=== PATIENT | female | born 1950 | race Caucasian/White ===

== ENCOUNTER 2017-10-13 05:45 | Observation (INO) ==
[2017-09-23 12:56] LABS: Basophils % 0.4 % (0.0-0.8); Eosinophils # 0.1 10*3/uL (0.0-0.87); Hematocrit 30.5 VOL% (35.7-47.0); Hemoglobin 8.8 GM/DL (12.0-16.0); Immature Granulocytes % 0.7 %; Immature Granulocytes Absolute 0.05 #; Lymphocytes % 15.2 % (21.3-54.2); Mean Corpuscular HGB Conc 28.9 GM/DL (32-36); Mean Corpuscular Hemoglobin 23 PG (27-34); Mean Corpuscular Volume 78.2 FL (87-102); Mean Platelet Volume 9.7 FL (9.6-12.0); Monocytes # 0.7 10*3/uL (0.11-0.8); Monocytes % 9.7 % (1.7-12.7); Neutrophils # 4.9 10*3/uL (1.4-7.4); Platelet Count 359 T/CUMM (130-400); White Blood Count 6.7 T/CUMM (4-12)
[2017-09-23 13:24] LABS: Hypochromasia 1+
[2017-09-23 13:35] LABS: Albumin 2.9 G/DL (3.4-5.0); Bilirubin,Total 0.5 MG/DL (0.2-1.0); Calcium 9.9 MG/DL (8.5-10.1); Osmolality,Calculated 279.5 MOS/KG (273-304); Potassium 4.7 MMOL/L (3.5-5.1); Total Protein 6.8 G/DL (6.4-8.3)
[2017-09-23 13:38] LABS: PT Patient Result 10.3 SECS; Partial Thromboplastin Time 22.6 SECS (0-40)
[2017-10-13] MEDS ORDERED: cefTRIAXone 1,000 MG in SYRINGE 1 EACH IV ONE (06:00)
[2017-10-13] MEDS ORDERED: DIAZEPAM 5 MG TABLET PO ONE (06:00)
[2017-10-13] MEDS ORDERED: FAMOTIDINE 20 MG TABLET PO ONE (06:00)
[2017-10-13] MEDS ORDERED: FAMOTIDINE 20 MG TABLET ONE (06:38)
[2017-10-13] MEDS ORDERED: DIAZEPAM 5 MG TABLET ONE (06:38)
[2017-10-13] MEDS ORDERED: cefTRIAXone 1,000 MG VIAL ONE (06:38)
[2017-10-13 07:19] LABS: Basophils % 0.3 % (0.0-0.8); Eosinophils % 0.1 % (0.00-10.9); Immature Granulocytes % 0.4 %; Immature Granulocytes Absolute 0.04 #; Lymphocytes # 0.7 10*3/uL (1.4-4.0); Mean Corpuscular HGB Conc 29.6 GM/DL (32-36); Mean Corpuscular Hemoglobin 22 PG (27-34); Mean Corpuscular Volume 75.2 FL (87-102); Mean Platelet Volume 10.3 FL (9.6-12.0); Monocytes % 11.1 % (1.7-12.7); Neutrophils # 7.4 10*3/uL (1.4-7.4); Neutrophils % 80.1 % (38.7-73.9); Platelet Count 323 T/CUMM (130-400); Red Blood Count 3.59 MC/CUMM (3.8-5.5); Red Cell Distribution Width 15.9 % (9.3-17.3); White Blood Count 9.2 T/CUMM (4-12)
[2017-10-13 07:35] LABS: Calcium 9.4 MG/DL (8.5-10.1); Osmolality,Calculated 285.3 MOS/KG (273-304); Potassium 4.4 MMOL/L (3.5-5.1)
[2017-10-13 09:33] LABS: Apearance,Urine Slightly Hazy (Clear); Bilirubin,Urine Negative (Negative); Blood, Urine Large mg/dL (Negative); Glucose,Urine (UA) Negative (Negative); Ketones,Urine Negative (Negative); Nitrite,Urine Negative (Negative); Protein,Urine Negative; RBC,Urine 530 /HPF (0-4); Squamous Epithelial Cell,Urine Occasional /HPF (0-10); Urine Color Straw (Yellow); Urine Specific Gravity 1.003 (1.001-1.035); Urine Urobilinogen < 2.0 EU/DL (0.2-1.0); WBC,Urine 28 /HPF (0-6)
[2017-10-13] MEDS ORDERED: LACTATED RINGERS 1,000 ML IV ONE (10:58)
[2017-10-13] MEDS ORDERED: NEOSTIGMINE 10 MG/10 ML VIAL ONE (10:58)
[2017-10-13] MEDS ORDERED: ONDANSETRON 4 MG/2 ML VIAL ONE ×2 (10:58)
[2017-10-13] MEDS ORDERED: ACETAMINOPHEN 1,000 MG/100 ML VIAL IV ONE (10:58)
[2017-10-13] MEDS ORDERED: ROCURONIUM 100 MG/10 ML VIAL IV ONE (10:58)
[2017-10-13] MEDS ORDERED: SEVOFLURANE 1 UNIT/15 MINUTE INH ONE (10:58)
[2017-10-13] MEDS ORDERED: PROPOFOL 200 MG/20 ML VIAL IV ONE (10:58)
[2017-10-13] MEDS: LACTATED RINGERS 1,000 ML IV SCH (11:01)
[2017-10-13] MEDS ORDERED: ONDANSETRON 4 MG/2 ML VIAL IV PRN ×2 (11:08→11:45)
[2017-10-13] MEDS ORDERED: HYDROmorphone 2 MG/1 ML VIAL ONE (11:09)
[2017-10-13] MEDS: HYDROmorphone 2 MG/1 ML VIAL IV PRN ×4 (11:10→11:33)
[2017-10-13] MEDS ORDERED: diphenhydrAMINE 50 MG/1 ML VIAL IV PRN (11:45)
[2017-10-13] MEDS ORDERED: MORPHINE 4 MG/1 ML VIAL IV PRN (11:45)
[2017-10-13] MEDS ORDERED: ALBUTEROL/IPRATROPIUM 3 ML NEB RESP TX PRN (13:12)
[2017-10-13] MEDS: SODIUM CHLORIDE 0.9% 1,000 ML IV SCH (14:07)
[2017-10-13] MEDS: FUROSEMIDE 20 MG TABLET PO SCH (16:23)
[2017-10-13] MEDS: FAMOTIDINE 20 MG TABLET PO SCH (20:49)
[2017-10-13] MEDS: CARVEDILOL 6.25 MG TABLET PO SCH (20:50)
[2017-10-13] MEDS: POTASSIUM CHLORIDE 20 MEQ TABLET PO SCH (20:50)
[2017-10-14] MEDS: SODIUM CHLORIDE 0.9% 1,000 ML IV SCH ×2 (04:00→18:15)
[2017-10-14 06:55] LABS: Basophils % 0.2 % (0.0-0.8); Eosinophils # 0.1 10*3/uL (0.0-0.87); Eosinophils % 0.9 % (0.00-10.9); Hematocrit 25.5 VOL% (35.7-47.0); Immature Granulocytes % 0.5 %; Immature Granulocytes Absolute 0.05 #; Lymphocytes # 0.8 10*3/uL (1.4-4.0); Lymphocytes % 8.6 % (21.3-54.2); Mean Corpuscular HGB Conc 29.4 GM/DL (32-36); Mean Corpuscular Hemoglobin 22 PG (27-34); Mean Corpuscular Volume 76.1 FL (87-102); Mean Platelet Volume 10.5 FL (9.6-12.0); Monocytes # 1.4 10*3/uL (0.11-0.8); Monocytes % 14.1 % (1.7-12.7); Neutrophils # 7.3 10*3/uL (1.4-7.4); Neutrophils % 75.7 % (38.7-73.9); Platelet Count 317 T/CUMM (130-400); Red Blood Count 3.35 MC/CUMM (3.8-5.5); Red Cell Distribution Width 15.9 % (9.3-17.3); White Blood Count 9.6 T/CUMM (4-12)
[2017-10-14 07:09] LABS: Hemoglobin 7.5 GM/DL (12.0-16.0)
[2017-10-14] MEDS: LACTATED RINGERS 1,000 ML IV SCH (07:09)
[2017-10-14 07:18] LABS: Giant Platelets Few; Hypochromasia 1+; Lymphocytes 10 % (20-55); Ovalocytes Slight; Platelet Estimate Adequate; Segmented Neutrophils 79 % (50-85); Total Cells Counted 100
[2017-10-14 07:32] LABS: Osmolality,Calculated 275.8 MOS/KG (273-304); Potassium 4.6 MMOL/L (3.5-5.1)
[2017-10-14] MEDS: FUROSEMIDE 20 MG TABLET PO SCH ×2 (08:35→16:43)
[2017-10-14] MEDS: POTASSIUM CHLORIDE 20 MEQ TABLET PO SCH ×2 (08:35→20:33)
[2017-10-14] MEDS: CARVEDILOL 6.25 MG TABLET PO SCH ×2 (08:35→20:32)
[2017-10-14] MEDS: ZINC OXIDE PASTE 113 GM TUBE TOP SCH ×2 (16:43→20:45)
[2017-10-14] MEDS: FAMOTIDINE 20 MG TABLET PO SCH (20:33)
[2017-10-15 06:33] LABS: Basophils % 0.3 % (0.0-0.8); Eosinophils # 0.2 10*3/uL (0.0-0.87); Eosinophils % 1.7 % (0.00-10.9); Hematocrit 26.2 VOL% (35.7-47.0); Hemoglobin 7.7 GM/DL (12.0-16.0); Immature Granulocytes % 0.5 %; Immature Granulocytes Absolute 0.04 #; Lymphocytes % 11.4 % (21.3-54.2); Mean Corpuscular HGB Conc 29.4 GM/DL (32-36); Mean Corpuscular Hemoglobin 22 PG (27-34); Mean Corpuscular Volume 75.9 FL (87-102); Mean Platelet Volume 10.7 FL (9.6-12.0); Monocytes # 1.5 10*3/uL (0.11-0.8); Monocytes % 17.1 % (1.7-12.7); Neutrophils # 6.1 10*3/uL (1.4-7.4); Platelet Count 292 T/CUMM (130-400); Red Blood Count 3.45 MC/CUMM (3.8-5.5); Red Cell Distribution Width 16.1 % (9.3-17.3); White Blood Count 8.9 T/CUMM (4-12)
[2017-10-15 06:56] LABS: Band Neutrophils 2 % (0-10); Hypochromasia 1+; Lymphocytes 20 % (20-55); Microcytosis 1+; Segmented Neutrophils 67 % (50-85); Total Cells Counted 100
[2017-10-15] MEDS ORDERED: SODIUM CHLORIDE 0.9% 1,000 ML IV SCH (07:00)
[2017-10-15 07:07] LABS: Osmolality,Calculated 277.7 MOS/KG (273-304); Potassium 4.5 MMOL/L (3.5-5.1)
[2017-10-15] MEDS: LACTATED RINGERS 1,000 ML IV SCH (08:26)
[2017-10-15] MEDS: FUROSEMIDE 20 MG TABLET PO SCH (09:11)
[2017-10-15] MEDS: POTASSIUM CHLORIDE 20 MEQ TABLET PO SCH (09:11)
[2017-10-15] MEDS: ZINC OXIDE PASTE 113 GM TUBE TOP SCH (09:11)
[2017-10-15] MEDS: CARVEDILOL 6.25 MG TABLET PO SCH (09:11)
[2017-10-15] MEDS ORDERED: FAMOTIDINE 20 MG TABLET PO ONE (10:00)
[2017-10-15] MEDS ORDERED: DIAZEPAM 5 MG TABLET PO ONE (10:00)
[2017-10-15 12:13] VITALS: BP 136/81
== END 2017-10-15 15:10 | disposition home or self-care (01) ==
LOC: N.5E 05:45 → N.RAD 05:45 → N.SDSINP 05:46 → N.5E 09:54
PROVIDERS: ADMIT Surgery; ATTEND Surgery

== ENCOUNTER 2017-11-23 10:13 | Inpatient (IN) ==
[2017-11-23] MEDS ORDERED: DEXTROSE 50% 25 GM/50 ML VIAL IV PRN (10:28)
[2017-11-23] MEDS ORDERED: GLUCAGON 1 MG VIAL IM PRN (10:28)
[2017-11-23] MEDS ORDERED: ONDANSETRON 4 MG/2 ML VIAL IV PRN (10:28)
[2017-11-23] MEDS ORDERED: PROMETHAZINE 25 MG/1 ML VIAL IM PRN (10:28)
[2017-11-23] MEDS ORDERED: ALBUTEROL/IPRATROPIUM 3 ML NEB RESP TX PRN (10:33)
[2017-11-23 11:35] LABS: Basophils % 0.2 % (0.0-0.8); Eosinophils % 0.2 % (0.00-10.9); Hematocrit 26.2 VOL% (35.7-47.0); Hemoglobin 7.5 GM/DL (12.0-16.0); Immature Granulocytes Absolute 0.12 #; Lymphocytes # 0.8 10*3/uL (1.4-4.0); Lymphocytes % 6.7 % (21.3-54.2); Mean Corpuscular HGB Conc 28.6 GM/DL (32-36); Mean Corpuscular Hemoglobin 21 PG (27-34); Mean Corpuscular Volume 72.2 FL (87-102); Mean Platelet Volume 9.4 FL (9.6-12.0); Monocytes # 1.4 10*3/uL (0.11-0.8); Monocytes % 12.4 % (1.7-12.7); Neutrophils # 9.2 10*3/uL (1.4-7.4); Neutrophils % 79.5 % (38.7-73.9); Platelet Count 430 T/CUMM (130-400); Red Blood Count 3.63 MC/CUMM (3.8-5.5); Red Cell Distribution Width 17.7 % (9.3-17.3); White Blood Count 11.6 T/CUMM (4-12)
[2017-11-23 11:51] LABS: Calcium 9.9 MG/DL (8.5-10.1); Osmolality,Calculated 280.8 MOS/KG (273-304); Potassium 3.6 MMOL/L (3.5-5.1)
[2017-11-23] MEDS: SODIUM CHLORIDE 0.9% 1,000 ML IV SCH (12:13)
[2017-11-23] MEDS: cefTRIAXone 1,000 MG in SYRINGE 1 EACH IV SCH (12:15)
[2017-11-23 12:23] LABS: Hypochromasia 1+; Platelet Estimate Increased; Polychromasia Slight; Target Cells Slight
[2017-11-23] MEDS: INSULIN REGULAR 100 UNIT/ML SUBCUT SCH ×3 (12:24→21:57)
[2017-11-23] MEDS: ACETAMINOPHEN 325 MG TABLET PO PRN (17:22)
[2017-11-23] MEDS: CARVEDILOL 6.25 MG TABLET PO SCH (21:58)
[2017-11-24] MEDS: SODIUM CHLORIDE 0.9% 1,000 ML IV SCH ×3 (02:05→18:33)
[2017-11-24 06:08] LABS: Calcium 9.2 MG/DL (8.5-10.1); Osmolality,Calculated 284.5 MOS/KG (273-304); Potassium 3.7 MMOL/L (3.5-5.1)
[2017-11-24] MEDS: INSULIN REGULAR 100 UNIT/ML SUBCUT SCH (08:42)
[2017-11-24] MEDS: CARVEDILOL 6.25 MG TABLET PO SCH ×2 (08:43→20:35)
[2017-11-24] MEDS: PANTOPRAZOLE 40 MG TABLET PO SCH (09:59)
[2017-11-24] MEDS: cefTRIAXone 1,000 MG in SYRINGE 1 EACH IV SCH (11:12)
[2017-11-24 13:24] LABS: % Iron Saturation 7.4 % (18-50); Ferritin 104.3 ng/ml (8-252)
[2017-11-24] MEDS: ACETAMINOPHEN 325 MG TABLET PO PRN (22:46)
[2017-11-25 06:36] LABS: Basophils % 0.3 % (0.0-0.8); Eosinophils # 0.1 10*3/uL (0.0-0.87); Eosinophils % 1.2 % (0.00-10.9); Hemoglobin 6.5 GM/DL (12.0-16.0); Immature Granulocytes % 1.6 %; Immature Granulocytes Absolute 0.16 #; Lymphocytes # 1.2 10*3/uL (1.4-4.0); Lymphocytes % 12.1 % (21.3-54.2); Mean Corpuscular HGB Conc 29.5 GM/DL (32-36); Mean Corpuscular Hemoglobin 21 PG (27-34); Mean Corpuscular Volume 70.5 FL (87-102); Mean Platelet Volume 9.5 FL (9.6-12.0); Monocytes # 1.3 10*3/uL (0.11-0.8); Monocytes % 12.5 % (1.7-12.7); Neutrophils # 7.3 10*3/uL (1.4-7.4); Neutrophils % 72.3 % (38.7-73.9); Platelet Count 380 T/CUMM (130-400); Red Blood Count 3.12 MC/CUMM (3.8-5.5)
[2017-11-25] MEDS: SODIUM CHLORIDE 0.9% 1,000 ML IV SCH (06:41)
[2017-11-25 07:02] LABS: Calcium 9.1 MG/DL (8.5-10.1); Osmolality,Calculated 283.4 MOS/KG (273-304); Potassium 3.5 MMOL/L (3.5-5.1)
[2017-11-25] MEDS ORDERED: POTASSIUM CHLORIDE 20 MEQ TABLET PO ONE ×2 (07:32→22:30)
[2017-11-25] MEDS ORDERED: SODIUM CHLORIDE 0.9% 1,000 ML IV PRN (09:36)
[2017-11-25] MEDS ORDERED: LIDOCAINE 2% 5 ML VIAL ONE (13:06)
[2017-11-25] MEDS ORDERED: ETOMIDATE 20 MG/10 ML VIAL IV ONE (13:06)
[2017-11-25] MEDS ORDERED: PROPOFOL 200 MG/20 ML VIAL IV ONE (13:06)
[2017-11-25] MEDS: cefTRIAXone 1,000 MG in SYRINGE 1 EACH IV SCH (15:06)
[2017-11-25] MEDS: PANTOPRAZOLE 40 MG TABLET PO SCH (15:07)
[2017-11-25] MEDS: CARVEDILOL 6.25 MG TABLET PO SCH ×2 (15:07→20:18)
[2017-11-25 15:27] LABS: Basophils % 0.2 % (0.0-0.8); Eosinophils # 0.1 10*3/uL (0.0-0.87); Eosinophils % 1.1 % (0.00-10.9); Hematocrit 29.2 VOL% (35.7-47.0); Hemoglobin 8.7 GM/DL (12.0-16.0); Immature Granulocytes % 1.3 %; Immature Granulocytes Absolute 0.12 #; Lymphocytes % 10.5 % (21.3-54.2); Mean Corpuscular HGB Conc 29.8 GM/DL (32-36); Mean Corpuscular Hemoglobin 23 PG (27-34); Mean Corpuscular Volume 76.8 FL (87-102); Mean Platelet Volume 9.2 FL (9.6-12.0); Monocytes % 11.1 % (1.7-12.7); Neutrophils # 7.1 10*3/uL (1.4-7.4); Neutrophils % 75.8 % (38.7-73.9); Platelet Count 374 T/CUMM (130-400); Red Cell Distribution Width 20.5 % (9.3-17.3); White Blood Count 9.4 T/CUMM (4-12)
[2017-11-25] MEDS ORDERED: DEXTROSE 50% 25 GM/50 ML VIAL IV PRN (16:02)
[2017-11-25] MEDS: ACETAMINOPHEN 325 MG TABLET PO PRN (17:10)
[2017-11-25] MEDS: FLUCONAZOLE 200 MG TABLET PO SCH (17:11)
[2017-11-26] MEDS: PANTOPRAZOLE 40 MG TABLET PO SCH ×2 (07:17→08:36)
[2017-11-26] MEDS: CARVEDILOL 6.25 MG TABLET PO SCH ×3 (07:17→20:44)
[2017-11-26] MEDS ORDERED: LIDOCAINE 2% TOP JELLY 20 ML VIAL INTRAURETH ONE (07:19)
[2017-11-26 07:28] LABS: Basophils % 0.2 % (0.0-0.8); Eosinophils # 0.2 10*3/uL (0.0-0.87); Eosinophils % 1.8 % (0.00-10.9); Hematocrit 28.3 VOL% (35.7-47.0); Hemoglobin 8.7 GM/DL (12.0-16.0); Immature Granulocytes % 1.1 %; Immature Granulocytes Absolute 0.11 #; Lymphocytes # 1.1 10*3/uL (1.4-4.0); Lymphocytes % 10.6 % (21.3-54.2); Mean Corpuscular HGB Conc 30.7 GM/DL (32-36); Mean Corpuscular Hemoglobin 22 PG (27-34); Mean Corpuscular Volume 72.8 FL (87-102); Mean Platelet Volume 9.3 FL (9.6-12.0); Monocytes # 1.4 10*3/uL (0.11-0.8); Neutrophils # 7.3 10*3/uL (1.4-7.4); Neutrophils % 72.3 % (38.7-73.9); Platelet Count 394 T/CUMM (130-400); Red Blood Count 3.89 MC/CUMM (3.8-5.5); Red Cell Distribution Width 19.9 % (9.3-17.3); White Blood Count 10.1 T/CUMM (4-12)
[2017-11-26 07:58] LABS: Bilirubin,Direct 0.12 MG/DL (0.0-0.20); Bilirubin,Indirect 0.4 MG/DL (0.0-1.0); Bilirubin,Total 0.5 MG/DL (0.2-1.0); Total Protein 6.5 G/DL (6.4-8.3)
[2017-11-26] MEDS ORDERED: MIDAZOLAM 2 MG/2 ML VIAL ONE (08:21)
[2017-11-26] MEDS ORDERED: SODIUM CHLORIDE 0.9% 250 ML IV ONE (08:21)
[2017-11-26] MEDS ORDERED: PROPOFOL 200 MG/20 ML VIAL IV ONE (08:21)
[2017-11-26] MEDS ORDERED: MORPHINE 10 MG/1 ML VIAL IV PRN (08:22)
[2017-11-26] MEDS ORDERED: ONDANSETRON 4 MG/2 ML VIAL IV PRN (08:22)
[2017-11-26] MEDS ORDERED: MORPHINE 10 MG/1 ML VIAL ONE (08:26)
[2017-11-26] MEDS ORDERED: ONDANSETRON 4 MG/2 ML VIAL ONE (08:26)
[2017-11-26] MEDS: FLUCONAZOLE 200 MG TABLET PO SCH (10:31)
[2017-11-26] MEDS: cefTRIAXone 1,000 MG in SYRINGE 1 EACH IV SCH (10:52)
[2017-11-26] MEDS: ACETAMINOPHEN 325 MG TABLET PO PRN (12:01)
[2017-11-27 05:44] LABS: Basophils % 0.4 % (0.0-0.8); Eosinophils # 0.2 10*3/uL (0.0-0.87); Eosinophils % 2.2 % (0.00-10.9); Hematocrit 27.3 VOL% (35.7-47.0); Hemoglobin 8.1 GM/DL (12.0-16.0); Immature Granulocytes % 0.9 %; Lymphocytes # 1.4 10*3/uL (1.4-4.0); Lymphocytes % 12.9 % (21.3-54.2); Mean Corpuscular HGB Conc 29.7 GM/DL (32-36); Mean Corpuscular Hemoglobin 22 PG (27-34); Mean Corpuscular Volume 75.4 FL (87-102); Mean Platelet Volume 9.1 FL (9.6-12.0); Monocytes # 1.5 10*3/uL (0.11-0.8); Monocytes % 13.6 % (1.7-12.7); Neutrophils # 7.6 10*3/uL (1.4-7.4); Platelet Count 357 T/CUMM (130-400); Red Blood Count 3.62 MC/CUMM (3.8-5.5); Red Cell Distribution Width 20.1 % (9.3-17.3); White Blood Count 10.8 T/CUMM (4-12)
[2017-11-27 06:17] LABS: Calcium 9.2 MG/DL (8.5-10.1); Osmolality,Calculated 280.5 MOS/KG (273-304); Potassium 3.9 MMOL/L (3.5-5.1)
[2017-11-27] MEDS: FLUCONAZOLE 200 MG TABLET PO SCH (08:58)
[2017-11-27] MEDS: PANTOPRAZOLE 40 MG TABLET PO SCH (08:58)
[2017-11-27] MEDS: CARVEDILOL 6.25 MG TABLET PO SCH (08:58)
[2017-11-27 09:32] VITALS: BP 133/90
[2017-11-27] MEDS: cefTRIAXone 1,000 MG in SYRINGE 1 EACH IV SCH (11:04)
== END 2017-11-27 12:27 | disposition home or self-care (01) | DRG 690 ==
LOC: N.TELES 10:46 → N.5E 11-24 18:48
PROVIDERS: ADMIT Surgery; ATTEND Surgery

== ENCOUNTER 2019-01-10 05:21 | Inpatient (IN) ==
[2018-12-30 10:36] LABS: Basophils # 0.1 10*3/uL (0.0-0.2); Basophils % 0.6 % (0.0-0.8); Eosinophils # 0.2 10*3/uL (0.0-0.87); Eosinophils % 1.8 % (0.00-10.9); Hematocrit 34.2 VOL% (35.7-47.0); Hemoglobin 10.3 GM/DL (12.0-16.0); Immature Granulocytes % 0.1 %; Immature Granulocytes Absolute 0.01 #; Lymphocytes % 11.7 % (21.3-54.2); Mean Corpuscular HGB Conc 30.1 GM/DL (32-36); Mean Corpuscular Volume 85.9 FL (87-102); Mean Platelet Volume 10.2 FL (9.6-12.0); Monocytes % 8.8 % (1.7-12.7); Platelet Count 298 T/CUMM (130-400); Red Blood Count 3.98 MC/CUMM (3.8-5.5); Red Cell Distribution Width 15.6 % (9.3-17.3); White Blood Count 8.4 T/CUMM (4-12)
[2018-12-30 10:42] LABS: PT Patient Result 10.7 SECS; Partial Thromboplastin Time 27.5 SECS (0-40)
[2018-12-30 10:51] LABS: Albumin 2.7 G/DL (3.4-5.0); Bilirubin,Total 0.8 MG/DL (0.2-1.0); Calcium 10.4 MG/DL (8.5-10.1); Osmolality,Calculated 279.7 MOS/KG (273-304); Total Protein 7.5 G/DL (6.4-8.3)
[2019-01-10] MEDS ORDERED: ceFAZolin 1,000 MG in SYRINGE 1 EACH IV ONE (06:00)
[2019-01-10] MEDS ORDERED: VANCOMYCIN INJ 1,000 MG in SODIUM CHLORIDE 0.9% 250 ML IV ONE (06:00)
[2019-01-10] MEDS ORDERED: BACITRACIN OINT 0.9 GM PACK TOP ONE (06:38)
[2019-01-10] MEDS ORDERED: BUPIVACAINE 0.5% 50 ML VIAL ONE (06:55)
[2019-01-10] MEDS ORDERED: DEXAMETHASONE 4 MG/1 ML VIAL ONE ×2 (06:55→11:24)
[2019-01-10] MEDS ORDERED: ceFAZolin 1,000 MG VIAL ONE (07:00)
[2019-01-10] MEDS ORDERED: VANCOMYCIN 1,000 MG VIAL ONE (07:00)
[2019-01-10] MEDS ORDERED: LIDOCAINE 1% 5 ML VIAL ONE (07:06)
[2019-01-10] MEDS ORDERED: EPINEPHrine 1 MG/ML VIAL ONE (07:06)
[2019-01-10] MEDS ORDERED: LACTATED RINGERS 1,000 ML IV SCH (07:30)
[2019-01-10] MEDS ORDERED: ZALEPLON 5 MG CAPSULE PO PRN ×2 (09:03→12:30)
[2019-01-10] MEDS ORDERED: ONDANSETRON 4 MG/2 ML VIAL IV PRN ×2 (09:03→11:18)
[2019-01-10] MEDS ORDERED: MAGNESIUM HYDROXIDE SUSP 30 ML UDCUP PO PRN (09:03)
[2019-01-10] MEDS ORDERED: oxyCODONE IR 5 MG TABLET PO PRN ×2 (09:03)
[2019-01-10] MEDS ORDERED: diphenhydrAMINE CAP 25 MG CAPSULE PO PRN (09:03)
[2019-01-10] MEDS ORDERED: MORPHINE 4 MG/1 ML VIAL IV PRN ×2 (09:03)
[2019-01-10] MEDS ORDERED: MEPERIDINE 25 MG/1 ML VIAL IV PRN (11:18)
[2019-01-10] MEDS ORDERED: PROPOFOL 200 MG/20 ML VIAL IV ONE (11:23)
[2019-01-10] MEDS ORDERED: SEVOFLURANE 1 UNIT/15 MINUTE INH ONE (11:23)
[2019-01-10] MEDS ORDERED: fentaNYL 100 MCG/2 ML VIAL ONE (11:24)
[2019-01-10] MEDS ORDERED: MIDAZOLAM 2 MG/2 ML VIAL ONE (11:24)
[2019-01-10] MEDS ORDERED: ePHEDrine 50 MG/ML AMP ONE (11:24)
[2019-01-10] MEDS ORDERED: ACETAMINOPHEN 1,000 MG/100 ML VIAL IV ONE (11:25)
[2019-01-10] MEDS ORDERED: NEOSTIGMINE 10 MG/10 ML VIAL ONE (11:25)
[2019-01-10] MEDS ORDERED: LACTATED RINGERS 1,000 ML IV ONE (11:25)
[2019-01-10] MEDS ORDERED: PHENYLEPHRINE 1 MG/10 ML SYRINGE IV ONE (11:25)
[2019-01-10] MEDS ORDERED: ROCURONIUM 100 MG/10 ML VIAL IV ONE (11:25)
[2019-01-10] MEDS ORDERED: GLYCOPYRROLATE 0.4 MG/2 ML VIAL ONE (11:25)
[2019-01-10 11:28] LABS: Amorphous Crystals,Urine Occasional /HPF (Few); Apearance,Urine CLOUDY (Clear); Bilirubin,Urine Negative (Negative); Blood, Urine Moderate mg/dL (Negative); Glucose,Urine (UA) Negative (Negative); Ketones,Urine Negative (Negative); Nitrite,Urine Negative (Negative); Protein,Urine 100 MG/DL; RBC,Urine 117 /HPF (0-4); Squamous Epithelial Cell,Urine Moderate /HPF (0-10); Urine Color Yellow (Yellow); Urine Specific Gravity 1.012 (1.001-1.035); Urine Urobilinogen < 2.0 EU/DL (0.2-1.0); WBC,Urine 720 /HPF (0-6)
[2019-01-10] MEDS: LACTATED RINGERS 1,000 ML IV SCH ×4 (11:42→20:58)
[2019-01-10] MEDS: KETOROLAC 15 MG/1 ML VIAL IV SCH ×3 (11:52→21:01)
[2019-01-10] MEDS: ACETAMINOPHEN 500 MG TABLET PO SCH ×2 (13:05→18:48)
[2019-01-10] MEDS: NITROFURANTOIN MACRO/MONO 100 MG CAPSULE PO SCH (21:00)
[2019-01-10] MEDS: DOCUSATE SODIUM 100 MG CAPSULE PO SCH (21:01)
[2019-01-10] MEDS: CARVEDILOL 12.5 MG TABLET PO SCH (21:01)
[2019-01-11] MEDS: ACETAMINOPHEN 500 MG TABLET PO SCH ×2 (00:49→06:23)
[2019-01-11] MEDS: LACTATED RINGERS 1,000 ML IV SCH (00:49)
[2019-01-11] MEDS: KETOROLAC 15 MG/1 ML VIAL IV SCH (04:00)
[2019-01-11 05:38] LABS: Basophils % 0.1 % (0.0-0.8); Hematocrit 24.2 VOL% (35.7-47.0); Hemoglobin 7.2 GM/DL (12.0-16.0); Immature Granulocytes % 0.6 %; Immature Granulocytes Absolute 0.06 #; Lymphocytes # 0.8 10*3/uL (1.4-4.0); Mean Corpuscular HGB Conc 29.8 GM/DL (32-36); Mean Corpuscular Volume 86.1 FL (87-102); Mean Platelet Volume 9.8 FL (9.6-12.0); Monocytes % 7.8 % (1.7-12.7); Neutrophils % 84.5 % (38.7-73.9); Platelet Count 236 T/CUMM (130-400); Red Blood Count 2.81 MC/CUMM (3.8-5.5); Red Cell Distribution Width 14.8 % (9.3-17.3); White Blood Count 10.8 T/CUMM (4-12)
[2019-01-11 05:53] LABS: Calcium 9.6 MG/DL (8.5-10.1); Osmolality,Calculated 282.7 MOS/KG (273-304)
[2019-01-11] MEDS ORDERED: SODIUM CHLORIDE 0.9% 1,000 ML IV PRN (06:09)
[2019-01-11] MEDS ORDERED: FUROSEMIDE 40 MG/4 ML VIAL IV PRN (06:09)
[2019-01-11] MEDS: ENOXAPARIN 30 MG/0.3 ML SYRINGE SUBCUT SCH (06:23)
[2019-01-11] MEDS: DOCUSATE SODIUM 100 MG CAPSULE PO SCH ×2 (09:29→20:59)
[2019-01-11] MEDS: NITROFURANTOIN MACRO/MONO 100 MG CAPSULE PO SCH ×2 (09:29→21:00)
[2019-01-11] MEDS: CARVEDILOL 12.5 MG TABLET PO SCH ×2 (09:29→20:59)
[2019-01-11] MEDS ORDERED: TUBERCULIN SKIN TEST 0.1 ML SYRINGE INTRADERM ONE (10:14)
[2019-01-11 18:02] LABS: Hematocrit 30.4 VOL% (35.7-47.0); Hemoglobin 9.1 GM/DL (12.0-16.0)
[2019-01-12 05:41] LABS: Basophils % 0.1 % (0.0-0.8); Eosinophils % 0.1 % (0.00-10.9); Hematocrit 27.6 VOL% (35.7-47.0); Hemoglobin 8.4 GM/DL (12.0-16.0); Immature Granulocytes % 0.7 %; Immature Granulocytes Absolute 0.06 #; Lymphocytes % 11.4 % (21.3-54.2); Mean Corpuscular HGB Conc 30.4 GM/DL (32-36); Mean Corpuscular Volume 86.8 FL (87-102); Mean Platelet Volume 10.2 FL (9.6-12.0); Monocytes % 12.6 % (1.7-12.7); Neutrophils % 75.1 % (38.7-73.9); Platelet Count 180 T/CUMM (130-400); Red Blood Count 3.18 MC/CUMM (3.8-5.5); Red Cell Distribution Width 14.5 % (9.3-17.3); White Blood Count 9.2 T/CUMM (4-12)
[2019-01-12] MEDS: ENOXAPARIN 30 MG/0.3 ML SYRINGE SUBCUT SCH (06:18)
[2019-01-12] MEDS: NITROFURANTOIN MACRO/MONO 100 MG CAPSULE PO SCH ×2 (09:33→20:35)
[2019-01-12] MEDS: DOCUSATE SODIUM 100 MG CAPSULE PO SCH ×2 (09:33→20:35)
[2019-01-12] MEDS: CARVEDILOL 12.5 MG TABLET PO SCH ×2 (09:33→20:35)
[2019-01-13 05:40] LABS: Basophils % 0.4 % (0.0-0.8); Eosinophils # 0.2 10*3/uL (0.0-0.87); Eosinophils % 2.7 % (0.00-10.9); Hematocrit 28.8 VOL% (35.7-47.0); Hemoglobin 8.7 GM/DL (12.0-16.0); Immature Granulocytes % 0.6 %; Immature Granulocytes Absolute 0.05 #; Lymphocytes # 1.1 10*3/uL (1.4-4.0); Lymphocytes % 14.3 % (21.3-54.2); Mean Corpuscular HGB Conc 30.2 GM/DL (32-36); Mean Corpuscular Volume 88.1 FL (87-102); Mean Platelet Volume 9.9 FL (9.6-12.0); Monocytes % 14.8 % (1.7-12.7); Neutrophils % 67.2 % (38.7-73.9); Platelet Count 210 T/CUMM (130-400); Red Blood Count 3.27 MC/CUMM (3.8-5.5); Red Cell Distribution Width 15.1 % (9.3-17.3); White Blood Count 7.9 T/CUMM (4-12)
[2019-01-13] MEDS: ENOXAPARIN 30 MG/0.3 ML SYRINGE SUBCUT SCH (06:00)
[2019-01-13 06:09] LABS: Calcium 9.3 MG/DL (8.5-10.1); Osmolality,Calculated 285.4 MOS/KG (273-304)
[2019-01-13] MEDS ORDERED: LACTULOSE 20 GM/30 ML UDCUP PO PRN (09:38)
[2019-01-13] MEDS: DOCUSATE SODIUM 100 MG CAPSULE PO SCH (09:50)
[2019-01-13] MEDS: NITROFURANTOIN MACRO/MONO 100 MG CAPSULE PO SCH (09:50)
[2019-01-13] MEDS: CARVEDILOL 12.5 MG TABLET PO SCH (09:50)
[2019-01-13 11:34] VITALS: BP 127/65
[2019-01-16] MEDS ORDERED: CHOLECALCIFEROL 1,000 UNIT TABLET PO SCH (09:00)
== END 2019-01-13 12:54 | disposition swing bed (61) | DRG 470 ==
LOC: N.SDSINP 05:21 → N.3E 12:21
PROVIDERS: ADMIT Orthopaedic Surgery; ATTEND Orthopaedic Surgery

== ENCOUNTER 2019-04-18 05:31 | Inpatient (IN) ==
[2019-04-06 11:01] LABS: Basophils % 0.5 % (0.0-0.8); Eosinophils # 0.1 10*3/uL (0.0-0.87); Eosinophils % 1.7 % (0.00-10.9); Hematocrit 35.2 VOL% (35.7-47.0); Hemoglobin 10.7 GM/DL (12.0-16.0); Immature Granulocytes % 0.2 %; Immature Granulocytes Absolute 0.01 #; Lymphocytes # 0.7 10*3/uL (1.4-4.0); Lymphocytes % 12.1 % (21.3-54.2); Mean Corpuscular HGB Conc 30.4 GM/DL (32-36); Mean Corpuscular Volume 86.3 FL (87-102); Mean Platelet Volume 9.8 FL (9.6-12.0); Monocytes % 7.9 % (1.7-12.7); Neutrophils % 77.6 % (38.7-73.9); Platelet Count 256 T/CUMM (130-400); Red Blood Count 4.08 MC/CUMM (3.8-5.5); Red Cell Distribution Width 15.4 % (9.3-17.3)
[2019-04-06 11:09] LABS: PT Patient Result 10.5 SECS (9.6-12.2)
[2019-04-06 11:28] LABS: Alanine Aminotransferase < 9 U/L (13-56); Alkaline Phosphatase 127 U/L (45-117); Aspartate Amino Transferase 10 U/L (0-37); Bilirubin,Total < 0.39 MG/DL (0.2-1.0); Blood Urea Nitrogen 29 MG/DL (7-18); Calcium 10.1 MG/DL (8.5-10.1); Estimated Glom Filtration Rate 24 ML/MIN; Glucose 97 MG/DL (74-106); Osmolality,Calculated 286.3 MOS/KG (273-304); Total Protein 7.7 G/DL (6.4-8.3)
[2019-04-18] MEDS ORDERED: ceFAZolin 1,000 MG in SYRINGE 1 EACH IV ONE (06:00)
[2019-04-18] MEDS ORDERED: VANCOMYCIN INJ 1,000 MG in SODIUM CHLORIDE 0.9% 250 ML IV ONE ×2 (06:00→22:00)
[2019-04-18] MEDS ORDERED: VANCOMYCIN 1,000 MG VIAL ONE (06:09)
[2019-04-18] MEDS ORDERED: LACTATED RINGERS 1,000 ML IV SCH (07:30)
[2019-04-18] MEDS ORDERED: TRANEXAMIC ACID 1,000 MG/10 ML VIAL ONE (09:14)
[2019-04-18] MEDS ORDERED: BACITRACIN OINT 0.9 GM PACK TOP ONE (09:14)
[2019-04-18] MEDS ORDERED: LIDOCAINE 1% 5 ML VIAL ONE (09:19)
[2019-04-18] MEDS ORDERED: DEXAMETHASONE 4 MG/1 ML VIAL ONE (09:19)
[2019-04-18] MEDS ORDERED: ROPIVACAINE 0.5% 30 ML VIAL ONE (09:19)
[2019-04-18] MEDS ORDERED: oxyCODONE IR 5 MG TABLET PO PRN ×2 (10:14)
[2019-04-18] MEDS ORDERED: ZALEPLON 5 MG CAPSULE PO PRN (10:14)
[2019-04-18] MEDS ORDERED: MAGNESIUM HYDROXIDE SUSP 30 ML UDCUP PO PRN (10:14)
[2019-04-18] MEDS ORDERED: MORPHINE 4 MG/1 ML VIAL IV PRN (10:14)
[2019-04-18] MEDS ORDERED: diphenhydrAMINE CAP 25 MG CAPSULE PO PRN (10:14)
[2019-04-18] MEDS ORDERED: SODIUM CHLORIDE 0.9% 1,000 ML IV PRN ×3 (12:25→13:31)
[2019-04-18] MEDS ORDERED: NEOMYCIN/POLYMYXIN/BACITRACIN OINT 28.4 GM TUBE TOP ONE (13:44)
[2019-04-18] MEDS ORDERED: PROPOFOL 200 MG/20 ML VIAL IV ONE (14:09)
[2019-04-18] MEDS ORDERED: SEVOFLURANE 1 UNIT/15 MINUTE INH ONE (14:09)
[2019-04-18] MEDS ORDERED: MIDAZOLAM 2 MG/2 ML VIAL ONE (14:09)
[2019-04-18] MEDS ORDERED: LIDOCAINE 2% 5 ML VIAL ONE (14:09)
[2019-04-18] MEDS ORDERED: PHENYLEPHRINE 10 MG/1 ML VIAL IV ONE (14:10)
[2019-04-18] MEDS ORDERED: ROCURONIUM 100 MG/10 ML VIAL IV ONE (14:10)
[2019-04-18] MEDS ORDERED: fentaNYL 100 MCG/2 ML VIAL ONE ×2 (14:10)
[2019-04-18] MEDS ORDERED: ONDANSETRON 4 MG/2 ML VIAL ONE (14:10)
[2019-04-18] MEDS ORDERED: LACTATED RINGERS 1,000 ML IV ONE (14:10)
[2019-04-18 14:17] LABS: Apearance,Urine CLOUDY (Clear); Bilirubin,Urine Negative (Negative); Blood, Urine Large mg/dL (Negative); Glucose,Urine (UA) Negative (Negative); Ketones,Urine Negative (Negative); Nitrite,Urine Negative (Negative); Protein,Urine 100 MG/DL; RBC,Urine 396 /HPF (0-4); Squamous Epithelial Cell,Urine Many /HPF (0-10); Urine Color Yellow (Yellow); Urine Specific Gravity 1.011 (1.001-1.035); Urine Urobilinogen < 2.0 EU/DL (0.2-1.0); WBC,Urine 1185 /HPF (0-6)
[2019-04-18 14:35] LABS: Basophils % 0.3 % (0.0-0.8); Eosinophils % 0.3 % (0.00-10.9); Hematocrit 36.6 VOL% (35.7-47.0); Immature Granulocytes % 0.5 %; Immature Granulocytes Absolute 0.05 #; Lymphocytes # 0.6 10*3/uL (1.4-4.0); Mean Corpuscular HGB Conc 30.1 GM/DL (32-36); Mean Corpuscular Volume 86.3 FL (87-102); Mean Platelet Volume 10.3 FL (9.6-12.0); Neutrophils % 89.9 % (38.7-73.9); Platelet Count 213 T/CUMM (130-400); Red Blood Count 4.24 MC/CUMM (3.8-5.5); Red Cell Distribution Width 15.8 % (9.3-17.3)
[2019-04-18] MEDS ORDERED: HYDROmorphone 2 MG/1 ML VIAL IV PRN (14:47)
[2019-04-18] MEDS ORDERED: ONDANSETRON 4 MG/2 ML VIAL IV PRN (14:47)
[2019-04-18] MEDS ORDERED: HYDROmorphone 2 MG/1 ML VIAL ONE (14:48)
[2019-04-18 14:51] LABS: Calcium 9.4 MG/DL (8.5-10.1); Osmolality,Calculated 291.1 MOS/KG (273-304)
[2019-04-18] MEDS ORDERED: KETOROLAC 15 MG/1 ML VIAL IV SCH (16:00)
[2019-04-18] MEDS: ACETAMINOPHEN 500 MG TABLET PO SCH ×2 (16:53→23:22)
[2019-04-18] MEDS: MORPHINE 4 MG/1 ML VIAL IV PRN (16:53)
[2019-04-18] MEDS: LACTATED RINGERS 1,000 ML IV SCH (16:53)
[2019-04-18] MEDS: ceFAZolin 2,000 MG in PREMIX 1 EACH IV SCH (20:38)
[2019-04-18] MEDS: carvediloL 6.25 MG TABLET PO SCH (20:39)
[2019-04-18] MEDS: NITROFURANTOIN MACRO/MONO 100 MG CAPSULE PO SCH (20:39)
[2019-04-18] MEDS: DOCUSATE SODIUM 100 MG CAPSULE PO SCH (20:39)
[2019-04-18] MEDS: ONDANSETRON 4 MG/2 ML VIAL IV PRN (23:22)
[2019-04-19] MEDS: LACTATED RINGERS 1,000 ML IV SCH ×2 (02:05→02:06)
[2019-04-19] MEDS: ceFAZolin 2,000 MG in PREMIX 1 EACH IV SCH (04:21)
[2019-04-19] MEDS: ACETAMINOPHEN 500 MG TABLET PO SCH ×2 (05:38→12:48)
[2019-04-19] MEDS: ENOXAPARIN 30 MG/0.3 ML SYRINGE SUBCUT SCH (05:40)
[2019-04-19 05:51] LABS: Basophils % 0.1 % (0.0-0.8); Hematocrit 30.1 VOL% (35.7-47.0); Hemoglobin 9.2 GM/DL (12.0-16.0); Immature Granulocytes % 0.4 %; Immature Granulocytes Absolute 0.04 #; Lymphocytes # 0.7 10*3/uL (1.4-4.0); Lymphocytes % 6.8 % (21.3-54.2); Mean Corpuscular HGB Conc 30.6 GM/DL (32-36); Mean Corpuscular Volume 85.8 FL (87-102); Monocytes % 10.8 % (1.7-12.7); Neutrophils % 81.9 % (38.7-73.9); Platelet Count 206 T/CUMM (130-400); Red Blood Count 3.51 MC/CUMM (3.8-5.5); Red Cell Distribution Width 15.5 % (9.3-17.3); White Blood Count 10.9 T/CUMM (4-12)
[2019-04-19 06:06] LABS: Calcium 9.3 MG/DL (8.5-10.1); Osmolality,Calculated 290.1 MOS/KG (273-304)
[2019-04-19] MEDS: carvediloL 6.25 MG TABLET PO SCH ×2 (09:39→21:32)
[2019-04-19] MEDS: DOCUSATE SODIUM 100 MG CAPSULE PO SCH ×2 (09:39→21:32)
[2019-04-19] MEDS: CHOLECALCIFEROL 5,000 UNIT TABLET PO SCH (09:39)
[2019-04-19] MEDS: NITROFURANTOIN MACRO/MONO 100 MG CAPSULE PO SCH ×2 (09:40→21:32)
[2019-04-19] MEDS: ONDANSETRON 4 MG/2 ML VIAL IV PRN ×3 (09:44→21:28)
[2019-04-19] MEDS ORDERED: ACETAMINOPHEN 500 MG TABLET ONE (12:46)
[2019-04-19] MEDS: MORPHINE 4 MG/1 ML VIAL IV PRN (15:42)
[2019-04-20] MEDS: ONDANSETRON 4 MG/2 ML VIAL IV PRN ×3 (05:51→22:14)
[2019-04-20] MEDS: ENOXAPARIN 30 MG/0.3 ML SYRINGE SUBCUT SCH (05:51)
[2019-04-20 06:12] LABS: Basophils % 0.1 % (0.0-0.8); Eosinophils % 0.1 % (0.00-10.9); Hematocrit 26.1 VOL% (35.7-47.0); Hemoglobin 7.8 GM/DL (12.0-16.0); Immature Granulocytes % 0.3 %; Immature Granulocytes Absolute 0.02 #; Lymphocytes # 0.9 10*3/uL (1.4-4.0); Lymphocytes % 13.8 % (21.3-54.2); Mean Corpuscular HGB Conc 29.9 GM/DL (32-36); Mean Corpuscular Volume 86.7 FL (87-102); Monocytes % 16.8 % (1.7-12.7); Neutrophils % 68.9 % (38.7-73.9); Platelet Count 167 T/CUMM (130-400); Red Blood Count 3.01 MC/CUMM (3.8-5.5); Red Cell Distribution Width 15.9 % (9.3-17.3); White Blood Count 6.8 T/CUMM (4-12)
[2019-04-20 06:36] LABS: Lymphocytes 13 % (20-55); Segmented Neutrophils 73 % (50-85); Total Cells Counted 100
[2019-04-20 06:37] LABS: Hypochromasia 1+; Microcytosis Slight; Platelet Estimate Adequate
[2019-04-20] MEDS: CHOLECALCIFEROL 5,000 UNIT TABLET PO SCH (08:35)
[2019-04-20] MEDS: carvediloL 6.25 MG TABLET PO SCH ×2 (08:35→20:51)
[2019-04-20] MEDS: NITROFURANTOIN MACRO/MONO 100 MG CAPSULE PO SCH ×2 (08:36→20:51)
[2019-04-20] MEDS: DOCUSATE SODIUM 100 MG CAPSULE PO SCH ×2 (08:36→20:50)
[2019-04-20] MEDS ORDERED: TUBERCULIN SKIN TEST 0.1 ML SYRINGE INTRADERM ONE (09:31)
[2019-04-20] MEDS: cefTRIAXone 1,000 MG in SYRINGE 1 EACH IV SCH (09:59)
[2019-04-21 04:39] LABS: Basophils % 0.3 % (0.0-0.8); Eosinophils % 0.4 % (0.00-10.9); Hematocrit 25.7 VOL% (35.7-47.0); Hemoglobin 7.7 GM/DL (12.0-16.0); Immature Granulocytes % 0.4 %; Immature Granulocytes Absolute 0.03 #; Lymphocytes # 0.9 10*3/uL (1.4-4.0); Lymphocytes % 12.2 % (21.3-54.2); Mean Corpuscular Volume 87.4 FL (87-102); Mean Platelet Volume 10.8 FL (9.6-12.0); Monocytes % 14.9 % (1.7-12.7); Neutrophils % 71.8 % (38.7-73.9); Platelet Count 155 T/CUMM (130-400); Red Blood Count 2.94 MC/CUMM (3.8-5.5); Red Cell Distribution Width 15.8 % (9.3-17.3); White Blood Count 7.1 T/CUMM (4-12)
[2019-04-21] MEDS: ENOXAPARIN 30 MG/0.3 ML SYRINGE SUBCUT SCH (05:47)
[2019-04-21] MEDS: ONDANSETRON 4 MG/2 ML VIAL IV PRN (06:46)
[2019-04-21] MEDS: CHOLECALCIFEROL 5,000 UNIT TABLET PO SCH (09:12)
[2019-04-21] MEDS: DOCUSATE SODIUM 100 MG CAPSULE PO SCH (09:12)
[2019-04-21] MEDS: NITROFURANTOIN MACRO/MONO 100 MG CAPSULE PO SCH (09:12)
[2019-04-21] MEDS: carvediloL 6.25 MG TABLET PO SCH (09:13)
[2019-04-21] MEDS: cefTRIAXone 1,000 MG in SYRINGE 1 EACH IV SCH (09:13)
[2019-04-21] MEDS ORDERED: SODIUM PHOSPHATE ENEMA 133 ML BOTTLE RECTAL ONE (09:30)
[2019-04-21 12:11] VITALS: BP 127/63
== END 2019-04-21 12:50 | disposition swing bed (61) | DRG 467 ==
LOC: N.SDSINP 05:31 → N.3E 15:33
PROVIDERS: ADMIT Orthopaedic Surgery; ATTEND Orthopaedic Surgery